=== PATIENT | male | born 1935 | race Caucasian/White ===

== ENCOUNTER → 2016-11-22 | Day surgery (SDC) | payer MEDICARE ==
[~2016-11-22] MED LIST: ACETAMINOPHEN 1000 MG/100 ML VIAL IV ONE; ATOR10 PO; BABY81CH PO; BUPIVACAINE/EPINEPHRINE 0.5% PF 30 ML VIAL ONE; CARV12.52 OR; ENAL20TA PO; LACTATED RINGER'S 1000 ML INJ 1,000 ML ONE; LEVO.05 PO; OCUVTAB PO; ONDANSETRON HCL 4 MG/2 ML VIAL IV PUSH ONE; PROPOFOL 200 MG/20 ML AMP IV ONE; VITA400C28 PO; ceFAZolin 2 GM PREMIX 50 ML ONE
--- NOTE | 2016-11-22 12:14 | TN ---
cc: MERY CHRISTINA MD DATE OF SURGERY: 11/22/2016 PREOPERATIVE DIAGNOSIS Left inguinal hernia. POSTOPERATIVE DIAGNOSIS: Left femoral hernia. SURGEON: Mery Christina MD. TIME ANALYSIS CLERK: Cody CHILEL 3. PROCEDURE: Repair of left femoral hernia with mesh. ANESTHESIA: General. SPECIMENS: None. ESTIMATED BLOOD LOSS: 5 cc. COMPLICATIONS: None. OPERATIVE FINDINGS: The patient was presumed to have left inguinal hernia on examination and was planned for left inguinal hernia repair. During the external oblique was opened and the spermatic cord was without abnormality and the inguinal floor was intact. There was a bulge inferior and deep to the inguinal ligament and on further exploration this was revealed to a femoral hernia. This was repaired with a medium sized mesh Perifix plug, secured at Coopers ligament, the pubis and the inguinal ligament and avoiding the femoral vessels. PROCEDURE IN DETAIL: The patient was taken to the operating room and placed in the supine position. General anesthesia was induced. The left groin was prepped and draped in the usual sterile fashion. A surgical time out was preformed to verify the correct patient, procedure and site. Appropriate perioperative antibiotics were administered. Local anesthetic was injected into the skin and subcutaneous tissue in the left inguinal area and the left inguinal incision was created, dissection was carried out down through the subcutaneous and scarpas fascia using the electrocautery. The external oblique was encountered a small incision created in the external oblique. The incision was lengthened with the Metzenbaum scissors to the external ring taking care to avoid the underlying nerves. The spermatic cord, appeared normal it was isolated with the [place] drain, there was no large spermatic cord lipoma. There were also direct and indirect spaces of the inguinal floor appeared normal and there was no evidence for any hernia. However, on palpation there continued to be a bulge inferior to the inguinal ligament in the upper thigh. Therefore, I explored inferiorly to the external oblique muscle and inguinal ligament in the fatty tissues of the upper thigh. A fatty hernia contexts were encountered. These were dissected free from surrounding tissues. On palpation from inferiorly a femoral hernia was easily palpable. The fatty tissue was reduced back into the abdominal cavity. The hernia was delineated and was fairly small about the width of my finger. The femoral vessels were palpated medially. A medium size mesh Perifix plug was chosen to repair the hernia. The plug was secured to Coopers ligament. The pubis and the undersign of the inguinal ligament using 0 Ethibond sutures, it was tightened down and secured in place, filling of the entire femoral hernia. Care was take to avoid the femoral vessels. At this point the external oblique fascia was closed with a running 3-0 Vicryl suture to recreate the external ring. A scarpas fascia was closed with interrupted 3-0 Vicryl and the skin was subcuticular 4-0 Monocryl as well as Dermabond. The patient tolerated the procedure well and was extubated and taken to Post-Anesthesia Care Unit in stable condition. The athletic supporter was placed. MD ANNA De La Vega/raheel /10:42 AM /10:48 AM MIGUEL
== END | disposition home or self-care (01) ==
LOC: ESDC 08:19
PROVIDERS: ATTEND Surgery
DX: K41.90 Unilateral femoral hernia, without obstruction or gangrene, not specified as recurrent (principal)
CPT/HCPCS: 00830; 49550; C1781; J0131; J0690; J2405; J3010; J7120